=== PATIENT | female | born 1990 | race African-American/Black ===

== ENCOUNTER 2017-12-16 07:48 | Emergency (ER) | payer BC, OTHER ==
[~2017-12-16] VITALS: Ht 160 cm; Wt 63.5 kg
[2017-12-16] MEDS ORDERED: SODIUM CHLORIDE 0.9% 1,000 ML IV ONE (08:31)
[2017-12-16] MEDS ORDERED: ONDANSETRON HCL 4 MG/2 ML VIAL IV ONE (08:45)
[2017-12-16] MEDS ORDERED: MORPHINE SULFATE 4 MG/ML SYR/VIAL IV ONE (08:45)
[2017-12-16 09:18] LABS: Urine Bacteria NONE SEEN /hpf (None Seen); Urine Blood Negative /uL (Negative); Urine Mucus FEW (None Seen); Urine Specific Gravity 1.042 (1.001-1.035); Urine WBC 2 /hpf (0 - 5)
[2017-12-16 09:20] LABS: Basophils # (auto) 0.1 uL; Eosinophils # (auto) 0 uL; Eosinophils % (auto) 0.2 % (0.0-7.0); Hematocrit 37.9 % (36.0-46.0); Hemoglobin 12.7 g/dL (12.2-16.2); Lymphocytes # (auto) 1.4 uL; Mean Corpuscular Hemoglobin 27.7 pg (28.0-32.0); Mean Corpuscular Hgb Conc. 33.4 g/dL (32.0-36.0); Monocytes # (auto) 0.5 uL; Neutrophils # (auto) 4.8 uL; Neutrophils % (auto) 70.8 % (37.0-80.0); Nucleated Red Blood Cells % 0.1 %; Platelet Count (auto) 168 10^3/uL (140-450); Red Blood Cells 4.56 10^6/uL (4.0-5.20); White Blood Cell 6.7 10^3/uL (4.4-10.8)
[2017-12-16] MEDS ORDERED: IOHEXOL 300 MG/ML 100ML BOTTLE IJ ONE (09:21)
[2017-12-16 09:30] LABS: Albumin 3.9 g/dL (3.4-5.0); Calcium 7.8 mg/dL (8.5-10.1); Potassium 4.2 mmol/L (3.5-5.1)
[2017-12-16 09:32] LABS: BUN/Creatinine Ratio 17.1
[2017-12-16 09:35] LABS: Bilirubin, Total 0.5 mg/dL (0.2-1.0)
[2017-12-16] MEDS ORDERED: KETOROLAC TROMETH 30 MG/ML 1ML VIAL IV ONE (10:00)
[2017-12-16] MEDS ORDERED: KETOROLAC TROMETH 30 MG/ML 1ML VIAL ONE (10:02)
[2017-12-16] MEDS ORDERED: HYDROmorphone HCL 2 MG/ML VL IV ONE (10:45)
[2017-12-16 15:04] VITALS: BP 118/67
[2017-12-16] MEDS: HYDROcodone-ACET 10/325MG TAB PO ONE ×2 (16:22→16:31)
== END 2017-12-16 17:45 | disposition home or self-care (01) ==
LOC: ER 07:51
DX: N83.209 Unspecified ovarian cyst, unspecified side (principal); Z88.6 Allergy status to analgesic agent
CPT/HCPCS: 36415; 74177; 76856; 80053; 81001; 81025; 85025; 96374; 96375; 99285; J1170; J1885; J2270; J2405; J7030; Q9967; 76830